=== PATIENT | female | born 1960 | race Hispanic/Latino ===

== ENCOUNTER 2018-11-08 00:10 | Emergency (ER) | payer BC ==
--- OUTSIDE RECORDS SUMMARY | 2018-11-08 00:13 | XMS REPORT ---
:1960 [facility] Address [address] [place] [address] [address] [place] [address] Care Team Providers Name Role Phone Unavailable Unavailable Unavailable Payers Payer Name Policy Type Policy Number Effective Date Expiration Date Problems This patient has no known problems. Allergies, Adverse Reactions, Alerts Allergy Allergy Status Severity Reaction(s) Onset Inactive Treating Comments Name Type Date Date Clinician No Known DA Active U 2013-07 Allergies -25 00:00:0 0 Medications This patient has no known medications.
[2018-11-08] MEDS ORDERED: KETOROLAC 30 MG/ML INJ ONE (01:06)
[2018-11-08 01:16] LABS: Albumin 4.1 g/dL (3.4-5.0); Bilirubin Total 0.4 mg/dL (0.2-1.0); Potassium 4.4 mmol/L (3.5-5.1); Protein, Total 7.9 g/dL (6.4-8.2)
[2018-11-08 01:17] LABS: Absolute Lymphocytes (CBC) 3.1 K/uL (0.7-4.9); Absolute Monocytes 0.6 K/uL (0.1-1.3); Absolute Neutrophil 2.4 K/uL (1.8-8.0); Basophils % 0.9 % (0-1.3); Hematocrit 44.6 % (36.0-45.0); Lymphocytes % 48.7 % (15.3-44.8); MPV 8.8 fL (7.6-11.3); RBC Red Blood Cell Count 5.16 M/uL (3.86-4.86)
[2018-11-08] MEDS ORDERED: TRAMADOL HCL 50 MG TAB ONE (02:08)
--- NOTE | 2018-11-08 02:14 | EDPHYS ---
Physician Documentation [facility] Name: Una Tarango Age: 58 yrs Sex: Female : 1960 Arrival Date: 11/08/2018 Time: 00:12 Bed 6 Private MD: Neela Kelly C ED Physician Nazario Carver HPI: 11/08 00:41 This 58 yrs old Female presents to ER via Wheelchair with complaints of Leg tw4 Pain. 00:41 The patient presents with pain, that is acute. The complaints affect the left calf. tw4 Context: The problem was sustained at home. Modifying factors: The symptoms are alleviated by nothing. the symptoms are aggravated by nothing. The patient has not experienced similar symptoms in the past. Historical: - Allergies: 00:19 No Known Allergies; la1 - Home Meds: 00:19 gemfibrozil 600 mg Oral tab 1 tab daily [Active]; losartan Oral [Active]; Metoprolol la1 Tartrate Oral [Active]; - PMHx: 00:19 Diabetes - NIDDM; Hypertension; la1 - Immunization history:: Adult Immunizations up to date. - Social history:: Smoking status: Patient/guardian denies using tobacco. - Ebola Screening: : No symptoms or risks identified at this time. ROS: 00:41 Constitutional: Negative for fever, chills, and weight loss, Eyes: Negative for injury, tw4 pain, redness, and discharge, Cardiovascular: Negative for chest pain, palpitations, and edema, Respiratory: Negative for shortness of breath, cough, wheezing, and pleuritic chest pain, Abdomen/GI: Negative for abdominal pain, nausea, vomiting, diarrhea, and constipation, Back: Negative for injury and pain. 00:41 MS/extremity: Positive for tenderness, Negative for acute changes, injury or acute deformity, abrasion, decreased range of motion, deformity, ecchymosis, erythema. Exam: 00:41 Constitutional: This is a well developed, well nourished patient who is awake, alert, tw4 and in no acute distress. Head/Face: Normocephalic, atraumatic. Chest/axilla: Normal chest wall appearance and motion. Nontender with no deformity. No lesions are appreciated. Cardiovascular: Regular rate and rhythm with a normal S1 and S2. No gallops, murmurs, or rubs. Normal PMI, no JVD. No pulse deficits. Respiratory: Lungs have equal breath sounds bilaterally, clear to auscultation and percussion. No rales, rhonchi or wheezes noted. No increased work of breathing, no retractions or nasal flaring. Abdomen/GI: Soft, non-tender, with normal bowel sounds. No distension or tympany. No guarding or rebound. No evidence of tenderness throughout. Back: No spinal tenderness. No costovertebral tenderness. Full range of motion. Neuro: Awake and alert, GCS 15, oriented to person, place, time, and situation. Cranial nerves II-XII grossly intact. Motor strength 5/5 in all extremities. Sensory grossly intact. Cerebellar exam normal. Normal gait. 00:41 Musculoskeletal/extremity: Extremities: noted in the lateral aspect of left calf, left calf, medial aspect of left calf and left aly: 00:41 Musculoskeletal/extremity: Extremities: pain, swelling, tenderness. tw4 Vital Signs: 00:19 BP 139 / 90; Pulse 84; Resp 16; Temp 97.2; Pulse Ox 98% on R/A; Weight 75.75 kg; Height la1 5 ft. 2 in. (157.48 cm); Pain 10/10; 01:58 BP 135 / 90; Pulse 89; Resp 17 S; Pulse Ox 97% on R/A; jd3 00:19 Body Mass Index 30.54 (75.75 kg, 157.48 cm) la1 MDM: 00:34 Patient medically screened. tw4 00:41 Differential diagnosis: dislocation, closed fracture. Data reviewed: vital signs, tw4 nurses notes. Counseling: I had a detailed discussion with the patient and/or guardian regarding: the historical points, exam findings, and any diagnostic results supporting the discharge/admit diagnosis. 02:08 Data interpreted: Pulse oximetry: Interpretation: normal. ED course: ultrasound tw4 performed and was negative for DVT. Pt received analgesia and states that she feels better. 11/08 00:39 Order name: CBC with Diff; Complete Time: 02:10 4 11/08 02:10 Interpretation: RBC 5.16; LYM% 48.7; HIEN% 36.4. tw4 11/08 00:39 Order name: CMP; Complete Time: 02:10 tw4 11/08 02:10 Interpretation: Normal except: CL 111; GLUC 112; BUN 21; GFR 74. tw4 11/08 00:39 Order name: Extremity Venous Uni Ltd 4 11/08 00:56 Order name: IV; Complete Time: 00:56 jd3 Administered Medications: 00:56 Drug: TORadol 30 mg Route: IVP; Site: right antecubital; jd3 01:53 Follow up: Response: No adverse reaction jd3 01:57 Drug: traMADol 50 mg Route: PO; jd3 02:29 Follow up: Response: No adverse reaction jd3 Disposition: 11/08/18 02:13 Discharged to Home. Impression: Strain of other muscle(s) and tendon(s) at lower leg level, left leg. - Condition is Stable. - Discharge Instructions: Leg Cramps. - Prescriptions for Tramadol 50 mg Oral Tablet - take 1 tablet by ORAL route every 8 hours as needed; 12 tablet. - Work release form, Medication Reconciliation Form, Thank You Letter, Antibiotic Education, Prescription Opioid Use form. - Follow up: Neela Kelly MD; When: Upon discharge from the Emergency Department; Reason: If symptoms return, Recheck today's complaints, Continuance of care. - Problem is new. - Symptoms have improved. Signatures: Dispatcher [employer] EDMS Cory Jarvis RN RN Travis Reeder RN RN [email or web address] Nazario Carver MD MD tw4 Corrections: (The following items were deleted from the chart) 02:30 02:13 11/08/2018 02:13 Discharged to Home. Impression: Strain of other muscle(s) and jd3 tendon(s) at lower leg level, left leg. Condition is Stable. Forms are Medication Reconciliation Form, Thank You Letter, Antibiotic Education, Prescription Opioid Use. Follow up: Neela Kelly; When: Upon discharge from the Emergency Department; Reason: If symptoms return, Recheck today's complaints, Continuance of care. Problem is new. Symptoms have improved. tw4
--- NOTE | 2018-11-08 02:14 | ER ---
Nurse's Notes [facility] Name: Una Tarango Age: 58 yrs Sex: Female : 1960 Arrival Date: 11/08/2018 Time: 00:12 Bed 6 Private MD: Neela Kelly C Diagnosis: Strain of other muscle(s) and tendon(s) at lower leg level, left leg Presentation: 11/08 00:17 Presenting complaint: Patient states: I have been having a pain around my left la1 hip/thigh that radiates down my leg to my calf area for the last few months, the pain is getting much worse the last couple days. Transition of care: patient was not received from another setting of care. Onset of symptoms was November 08, 2018. Risk Assessment: Do you want to hurt yourself or someone else? Patient reports no desire to harm self or others. Initial Sepsis Screen: Does the patient meet any 2 criteria? No. Patient's initial sepsis screen is negative. Does the patient have a suspected source of infection? No. Patient's initial sepsis screen is negative. Care prior to arrival: None. 00:17 Method Of Arrival: Wheelchair la1 00:17 Acuity: CHRIS 4 la1 Historical: - Allergies: 00:19 No Known Allergies; la1 - Home Meds: 00:19 gemfibrozil 600 mg Oral tab 1 tab daily [Active]; losartan Oral [Active]; Metoprolol la1 Tartrate Oral [Active]; - PMHx: 00:19 Diabetes - NIDDM; Hypertension; la1 - Immunization history:: Adult Immunizations up to date. - Social history:: Smoking status: Patient/guardian denies using tobacco. - Ebola Screening: : No symptoms or risks identified at this time. Screenin:31 Abuse screen: Denies threats or abuse. Nutritional screening: No deficits noted. jd3 Tuberculosis screening: No symptoms or risk factors identified. Fall Risk Ambulatory Aid- None/Bed Rest/Nurse Assist (0 pts). Gait- Normal/Bed Rest/Wheelchair (0 pts) Mental Status- Oriented to own ability (0 pts). Total Conrad Fall Scale indicates No Risk (0-24 pts). Assessment: 00:28 General: Appears in no apparent distress. uncomfortable, Behavior is calm, cooperative, jd3 appropriate for age. Pain: Complains of pain in left hip Pain radiates to left leg Quality of pain is described as shooting. Neuro: Level of Consciousness is awake, alert, obeys commands, Oriented to person, place, time, situation, Appropriate for age. Cardiovascular: Capillary refill < 3 seconds Patient's skin is warm and dry. Respiratory: Airway is patent Respiratory effort is even, unlabored, Respiratory pattern is regular, symmetrical. GI: No signs and/or symptoms were reported involving the gastrointestinal system. : No signs and/or symptoms were reported regarding the genitourinary system. EENT: No signs and/or symptoms were reported regarding the EENT system. Derm: Skin is intact, Skin is dry, Skin is normal, Skin temperature is warm Denies tingling, swelling. Musculoskeletal: Circulation, motion, and sensation intact. Range of motion: intact in all extremities, limited in left hip. 01:20 Reassessment: Patient appears in no apparent distress at this time. Patient and/or jd3 family updated on plan of care and expected duration. Pain level reassessed. Patient is alert, oriented x 3, equal unlabored respirations, skin warm/dry/pink. awaiting ultrasound. 01:58 Reassessment: Patient appears in no apparent distress at this time. Patient and/or jd3 family updated on plan of care and expected duration. Pain level reassessed. Patient is alert, oriented x 3, equal unlabored respirations, skin warm/dry/pink. 02:27 Reassessment: Patient appears in no apparent distress at this time. Patient and/or jd3 family updated on plan of care and expected duration. Pain level reassessed. Patient is alert, oriented x 3, equal unlabored respirations, skin warm/dry/pink. Vital Signs: 00:19 BP 139 / 90; Pulse 84; Resp 16; Temp 97.2; Pulse Ox 98% on R/A; Weight 75.75 kg; Height la1 5 ft. 2 in. (157.48 cm); Pain 10/10; 01:58 BP 135 / 90; Pulse 89; Resp 17 S; Pulse Ox 97% on R/A; jd3 00:19 Body Mass Index 30.54 (75.75 kg, 157.48 cm) la1 ED Course: 00:12 Patient arrived in ED. do 00:13 Neela Kelly MD is Private Physician. do 00:17 Triage completed. la1 00:20 Arm band placed on right wrist. la1 00:24 Travis Fleming RN is Primary Nurse. jd3 00:34 Nazario Carver MD is Attending Physician. tw4 00:35 Patient has correct armband on for positive identification. Bed in low position. Call jd3 light in reach. Side rails up X 1. Adult w/ patient. 00:45 Inserted saline lock: 20 gauge in right antecubital area, using aseptic technique. jd3 Blood collected. 01:41 Extremity Venous Uni Ltd US In Process Unspecified. EDMS 01:58 No provider procedures requiring assistance completed. jd3 02:11 Neela Kelly MD is Referral Physician. tw4 02:28 IV discontinued, intact, bleeding controlled, No redness/swelling at site. Pressure jd3 dressing applied. Administered Medications: 00:56 Drug: TORadol 30 mg Route: IVP; Site: right antecubital; jd3 01:53 Follow up: Response: No adverse reaction jd3 01:57 Drug: traMADol 50 mg Route: PO; jd3 02:29 Follow up: Response: No adverse reaction jd3 Outcome: 02:13 Discharge ordered by . tw4 02:27 Discharged to home ambulatory, with family. jd3 02:27 Condition: stable 02:27 Discharge instructions given to patient, family, Instructed on discharge instructions, follow up and referral plans. medication usage, Demonstrated understanding of instructions, follow-up care, medications, Prescriptions given X 1. 02:30 Patient left the ED. jd3 Signatures: Dispatcher [employer] EDOK Cory Jarvis, JAD RN la1 Kailey Schmitz Jonathon, RN RN jd3 Nazario Carver MD MD tw4
[2018-11-08 03:40] VITALS: TEMP 97.2
[2018-11-08 03:41] VITALS: BP 135/90; O2SAT 97
--- NOTE | 2018-11-08 07:26 | RAD REPORT ---
EXAM DESCRIPTION: USExtremity Venous Uni Ltd11/08/2018 1:44 am CLINICAL HISTORY: left leg pain COMPARISON: None. FINDINGS: Left common femoral, superficial femoral, popliteal and posterior tibial veins are compre ssible and demonstrate augmentation. Doppler demonstrates good flow. IMPRESSION: No evidence of deep venous thrombosis involving the left lower extremity.
== END 2018-11-08 02:30 | disposition home or self-care (01) ==
LOC: ER 00:10
DX: S86.912A Strain of unspecified muscle(s) and tendon(s) at lower leg level, left leg, initial encounter (principal); Y92.009 Unspecified place in unspecified non-institutional (private) residence as the place of occurrence of the external cause; E11.9 Type 2 diabetes mellitus without complications; I10 Essential (primary) hypertension
CPT/HCPCS: 36415; 80053; 85025; 93971; 96374; 99284

== ENCOUNTER 2024-10-20 05:16 | Emergency (ER) | payer BC ==
--- OUTSIDE RECORDS SUMMARY | 2024-10-20 05:19 | XMS REPORT | Continuity of Care Document ---
Author Name Unknown Address [address] [facility] [address] [place] [address] [facility] [place] Address [address] [facility] [address] [place] [address] Care Team Providers Care Anthropological Linguist Name Role Phone PCP, PATIENT DOES NOT HAVE A Primary Care Physic ephraim Unavailable Yadira Robertson Attending Clinician Unavailable Luis Daniel Attending Clinician Unavailable MARGARITA_Malika Attending Clinician UnavailHimanshu Kahn Attending Clinician Unavailable SHEREEN JOHNSON Attending Clinician Unavailab Shereen Curtis DO Attending Clinician [phone] Yadira Robertson Admitting Clinician Unavailable Luis Daniel Admitting Clinician Unavailable MARGARITA_Malika Admitting Clinician Unavailmadelaine richmond KNOW, DOES_NOT Admitting Clinician Unavailable SHEREEN JOHNSON Admitting Clinician Unavailab wade Payers Payer Name Policy Type Policy Number Effective Date Expirati on Date Source [place] [id number] 2022 00:[place] [id number] 2022 00:00:00 [place] [id number] 2022 00:00:00 Problems Condition Name Condition Details Condition Category Status Onset Date Resolution Date Last Treatment Date Treating Clinician Comments Source Chronic cystitis Chronic Cystitis Problem Active 2023-0 4-04 00:00: 00 [facility] Fracture of patella Fracture of Patella Problem Active 2021-06 0-13 00:00: 00 [facility] Pain of right knee joint Pain of Right Knee Joint Problem Active 2021-06 0-11 00:00: 00 [facility] Fracture of patella Fracture of Patella Problem Active 2021-06 0-11 00:00: 00 [facility] Disease of head (disorder) Disease of head (disorder) Active Problem 01/16/2022 [facility] Problem Active 2022-01-16 23:25:17 Joe Mercado Headache (finding) Headache (finding) Active Problem 01/16/2022 [facility] Problem Active 2022-01-16 23:25:17 Joe Mercado Hyperlipid emia (disorder) Hyperlipid emia (disorder) Active Problem 01/16/2022 [facility] Problem Active 2022-01-16 23:25:17 Joe Mercado Hypertensi ve disorder, systemic arterial (disorder) Hypertensi ve disorder, systemic arterial (disorder) Active Problem 01/16/2022 [facility] Problem Active 2022-01-16 23:25:17 Joe Mercado No known active problems No known active problems Disease [facility] Allergies, Adverse Reactions, Alerts Allergy Name Allergy Type Status Severity Reaction(s) Onset Date Inactive Date Treating Clinician Comments Source No Known Drug Allergie s DA Active U 2021-06 0-14 00:00: [address] [facility] No Known Drug Allergie s DA Active U 2021-06 0 00:00: 00 [facility] No Known Allergie s DA Active U 2 00:00: 00 [facility] No Known Allergie s DA Active U 08-23 00:00: 00 [facility] NO KNOWN ALLERGIE S Drug Class Active [facility] Social History Social Habit Start Date Stop Date Quantity Comments Source Exposure to SARS-CoV-2 (event) 2022-03-27 00:00:00 2022-04-06 17:54:00 Not sure [facility] Social History 2021-08-13 21:16:08 2021-08-13 21:16:08 Reno Mercado Sex Assigned At 1960 00:00:00 1960 00:00:00 [facility] Smoking Status Start Date Stop Date Source Never Smoker Sorin keith Tobacco smoking consumption unknown [facility] Medications Ordered Medication Name Filled Medication Name Start Date Stop Date Current Medication? Ordering Clinician Indication Dosage Frequency Signature (SIG) Comments Components Source FENTanyl PF (SUBLIMAZE (PF)) injection 50 mcg 2021-06 23:45: 00 04-06 23:10 :00 No 50ug 50 mcg, Intramuscu lar, ONCE, 1 dose, On 04/06/22 at 1845, Routine [facility] acetaminoph en-codeine (TYLENOL-CO DEINE #3) 300-30 mg tablet 2021-06 00:00: 00 Yes [id number] 1{tbl} Take 1 tablet by mouth every 4 (four) hours as needed for Pain (scale 1-3). Indication s: acute pain [facility] metoprolol succinate 100 mg oral capsule, extended release 08-13 21:30: 00 Yes 100 mg = 1 cap, PO, Daily, 0 Refill(s) Joe Mercado gemfibrozil 600 mg oral tablet 08-13 21:27: 00 Yes 600 mg = 1 tab, PO, BID, 0 Refill(s) Joe Mercado aspirin 81 mg tablet,yulissa yed release Take 1 tablet twice a day by oral route for 27 days. aspirin 81 mg tablet,yulissa yed release Take 1 tablet twice a day by oral route for 27 days. No 1 BID aspirin 81 mg tablet,del ayed release Take 1 tablet twice a day by oral route for 27 days. [facility] cephalexin 500 mg tablet cephalexin 500 mg tablet No cephalexin 500 mg tablet [facility] losartan potassium (bulk) 100 % powder losartan potassium (bulk) 100 % powder No losartan potassium (bulk) 100 % powder [facility] metoprolol succinate ER 25 mg capsule sprinkle, ext. release 24 hr metoprolol succinate ER 25 mg capsule sprinkle, ext. release 24 hr No metoprolol succinate ER 25 mg capsule sprinkle, ext. release 24 hr [facility] omeprazole ER 40 mg capsule,ext ended release omeprazole ER 40 mg capsule,ext ended release No omeprazole ER 40 mg capsule,ex tended release [facility] promethazin e 25 mg tablet Take 1 tablet(s) EVERY 8 HOURS by oral route as needed for nausea/vomi ting promethazin e 25 mg tablet Take 1 tablet(s) EVERY 8 HOURS by oral route as needed for nausea/vomi ting No promethazi ne 25 mg tablet Take 1 tablet(s) EVERY 8 HOURS by oral route as needed for nausea/vom iting [facility] rosuvastati n 10 mg tablet rosuvastati n 10 mg tablet No rosuvastat in 10 mg tablet [facility] tizanidine 4 mg tablet Take 1 tablet(s), by mouth, EVERY 8 hours as needed for muscle spasms tizanidine 4 mg tablet Take 1 tablet(s), by mouth, EVERY 8 hours as needed for muscle spasms No tizanidine 4 mg tablet Take 1 tablet(s), by mouth, EVERY 8 hours as needed for muscle spasms [facility] Ultracet 37.5 mg-325 mg tablet Take 1 tablet by mouth every 4-6 hours as needed for pain Ultracet 37.5 mg-325 mg tablet Take 1 tablet by mouth every 4-6 hours as needed for pain No Ultracet 37.5 mg-325 mg tablet Take 1 tablet by mouth every 4-6 hours as needed for pain [facility] aspirin 81 mg tablet,yulissa yed release Take 1 tablet twice a day by oral route for 27 days. aspirin 81 mg tablet,yulissa yed release Take 1 tablet twice a day by oral route for 27 days. No 1 BID aspirin 81 mg tablet,del ayed release Take 1 tablet twice a day by oral route for 27 days. [facility] cephalexin 500 mg tablet cephalexin 500 mg tablet No cephalexin 500 mg tablet [facility] losartan potassium (bulk) 100 % powder losartan potassium (bulk) 100 % powder No losartan potassium (bulk) 100 % powder [facility] metoprolol succinate ER 25 mg capsule sprinkle, ext. release 24 hr metoprolol succinate ER 25 mg capsule sprinkle, ext. release 24 hr No metoprolol succinate ER 25 mg capsule sprinkle, ext. release 24 hr [facility] omeprazole ER 40 mg capsule,ext ended release omeprazole ER 40 mg capsule,ext ended release No omeprazole ER 40 mg capsule,ex tended release [facility] promethazin e 25 mg tablet Take 1 tablet(s) EVERY 8 HOURS by oral route as needed for nausea/vomi ting promethazin e 25 mg tablet Take 1 tablet(s) EVERY 8 HOURS by oral route as needed for nausea/vomi ting No promethazi ne 25 mg tablet Take 1 tablet(s) EVERY 8 HOURS by oral route as needed for nausea/vom iting [facility] rosuvastati n 10 mg tablet rosuvastati n 10 mg tablet No rosuvastat in 10 mg tablet [facility] tizanidine 4 mg tablet Take 1 tablet(s), by mouth, EVERY 8 hours as needed for muscle spasms tizanidine 4 mg tablet Take 1 tablet(s), by mouth, EVERY 8 hours as needed for muscle spasms No tizanidine 4 mg tablet Take 1 tablet(s), by mouth, EVERY 8 hours as needed for muscle spasms [facility] Ultracet 37.5 mg-325 mg tablet Take 1 tablet by mouth every 4-6 hours as needed for pain Ultracet 37.5 mg-325 mg tablet Take 1 tablet by mouth every 4-6 hours as needed for pain No Ultracet 37.5 mg-325 mg tablet Take 1 tablet by mouth every 4-6 hours as needed for pain [facility] aspirin 81 mg tablet,yulissa yed release Take 1 tablet twice a day by oral route for 27 days. aspirin 81 mg tablet,yulissa yed release Take 1 tablet twice a day by oral route for 27 days. No 1 BID aspirin 81 mg tablet,del ayed release Take 1 tablet twice a day by oral route for 27 days. [facility] losartan potassium (bulk) 100 % powder losartan potassium (bulk) 100 % powder No losartan potassium (bulk) 100 % powder [facility] metoprolol succinate ER 25 mg capsule sprinkle, ext. release 24 hr metoprolol succinate ER 25 mg capsule sprinkle, ext. release 24 hr No metoprolol succinate ER 25 mg capsule sprinkle, ext. release 24 hr [facility] omeprazole ER 40 mg capsule,ext ended release omeprazole ER 40 mg capsule,ext ended release No omeprazole ER 40 mg capsule,ex tended release [facility] rosuvastati n 10 mg tablet rosuvastati n 10 mg tablet No rosuvastat in 10 mg tablet [facility] Ultracet 37.5 mg-325 mg tablet Take 1 tablet by mouth every 4-6 hours as needed for pain Ultracet 37.5 mg-325 mg tablet Take 1 tablet by mouth every 4-6 hours as needed for pain No Ultracet 37.5 mg-325 mg tablet Take 1 tablet by mouth every 4-6 hours as needed for pain [facility] aspirin 81 mg tablet,yulissa yed release Take 1 tablet twice a day by oral route for 27 days. aspirin 81 mg tablet,yulissa yed release Take 1 tablet twice a day by oral route for 27 days. No 1 BID aspirin 81 mg tablet,del ayed release Take 1 tablet twice a day by oral route for 27 days. [facility] losartan potassium (bulk) 100 % powder losartan potassium (bulk) 100 % powder No losartan potassium (bulk) 100 % powder [facility] metoprolol succinate ER 25 mg capsule sprinkle, ext. release 24 hr metoprolol succinate ER 25 mg capsule sprinkle, ext. release 24 hr No metoprolol succinate ER 25 mg capsule sprinkle, ext. release 24 hr [facility] omeprazole ER 40 mg capsule,ext ended release omeprazole ER 40 mg capsule,ext ended release No omeprazole ER 40 mg capsule,ex tended release [facility] rosuvastati n 10 mg tablet rosuvastati n 10 mg tablet No rosuvastat in 10 mg tablet [facility] Ultracet 37.5 mg-325 mg tablet Take 1 tablet by mouth every 4-6 hours as needed for pain Ultracet 37.5 mg-325 mg tablet Take 1 tablet by mouth every 4-6 hours as needed for pain No Ultracet 37.5 mg-325 mg tablet Take 1 tablet by mouth every 4-6 hours as needed for pain [facility] nitrofurant oin macrocrysta l 50 mg capsule Take 1 capsule every day by oral route for 30 days. nitrofurant oin macrocrysta l 50 mg capsule Take 1 capsule every day by oral route for 30 days. No 1capsul e(s) Q1D nitrofuran toin macrocryst al 50 mg capsule Take 1 capsule every day by oral route for 30 days. [facility] dicyclomine 10 mg capsule dicyclomine 10 mg capsule No dicyclomin e 10 mg capsule [facility] Gemtesa 75 mg tablet Take 1 tablet every day by oral route for 30 days. Gemtesa 75 mg tablet Take 1 tablet every day by oral route for 30 days. No 1 Q1D Gemtesa 75 mg tablet Take 1 tablet every day by oral route for 30 days. [facility] losartan 100 mg tablet losartan 100 mg tablet No losartan 100 mg tablet [facility] omeprazole 40 mg capsule,del ayed release omeprazole 40 mg capsule,del ayed release No omeprazole 40 mg capsule,de layed release [facility] estradiol 0.01% (0.1 mg/gram) vaginal cream Insert 1 g twice a week by vaginal route as directed for 90 days. estradiol 0.01% (0.1 mg/gram) vaginal cream Insert 1 g twice a week by vaginal route as directed for 90 days. No 1g Q3.5D estradiol 0.01% (0.1 mg/gram) vaginal cream Insert 1 g twice a week by vaginal route as directed for 90 days. [facility] metoprolol tartrate 50 mg tablet metoprolol tartrate 50 mg tablet No metoprolol tartrate 50 mg tablet [facility] Immunizations Ordered Immunization Name Filled Immunization Name Date Status Comments Source COVID-19 (SARS-COV-2) vaccine, unspecified COVID-19 (SARS-COV-2) vaccine, unspecified Unknown Completed [facility] influenza, unspecified formulation influenza, unspecified formulation Unknown Completed [facility] Vital Signs Vital Name Observation Time Observation Value Comments S ource BMI (Body Mass Index) 2024-03-22 00:00:00 31.1 kg/m2 [facility] Body Weight 2024-03-22 00:00:00 170 [lb_av] [facility] Height 2024-03-22 00:00:00 62 [in_i] [place] [facility] Height 2023-12-15 00:00:00 62 [in_i] [place] [facility] BP Systolic 2023-12-15 00:00:00 130 mm[Hg] [facility] BMI (Body Mass Index) 2023-12-15 00:00:00 31.1 kg/m2 [facility] Weight 2023-12-15 00:00:00 170 [lb_av[facility] Diastolic 2023-12-15 00:00:00 79 mm[Hg] [facility] Height 2023-03-26 00:00:00 62 [in_i] [place] [facility] Body Weight 2023-03-26 00:00:00 168 [lb_av] [facility] BMI (Body Mass Index) 2023-03-26 00:00:00 30.7 kg/m2 [facility] Height 2022-10-06 00:00:00 62 [in_i] [place] [facility] BMI (Body Mass Index) 2022-10-06 00:00:00 30.7 kg/m2 [facility] Body Weight 2022-10-06 00:00:00 168 [lb_av] [facility] Height 2022-07-07 00:00:00 62 [in_i] [facility] Body Weight 2022-07-07 00:00:00 170 [lb_av] [facility] Height 2022-04-08 00:00:00 62 [in_i] [facility] BMI (Body Mass Index) 2022-04-08 00:00:00 31.1 kg/m2 [facility] Body Weight 2022-04-08 00:00:00 170 [lb_av] [facility] Systolic blood pressure 2022-04-06 22:55:00 188 mm[Hg] [facility] Diastolic blood pressure 2022-04-06 22:55:00 69 mm[Hg] [facility] Heart rate 2022-04-06 22:55:00 86 /[facility] 2022-04-06 22:55:00 36.61 Mons[facility] Respiratory rate 2022-04-06 22:55:00 18 /min [facility] Body height 2022-04-06 22:55:00 157.5 cm [facility] Body weight 2022-04-06 22:55:00 77.111 kg [facility] BMI 2022-04-06 22:55:00 31.09 kg/m2 [facility] Oxygen saturation in Arterial blood by Pulse oximetry 2022-04-06 22:55:00 99 /min [facility] Diastolic (mm Hg) 2021-10-15 19:44:00 [facility] Heart Rate 2021-10-15 19:44:00 [facility] Respitory Rate 2021-10-15 19:44:00 [facility] Height 2021-10-15 19:44:00 157.48 cm [facility] Weight 2021-10-15 19:44:00 [facility] BMI Calculated 2021-10-15 19:44:00 [facility] Systolic (mm Hg) 2021-10-15 19:44:00 [facility] Systolic (mm Hg) 2021-08-13 21:05:00 [facility] Diastolic (mm Hg) 2021-08-13 21:05:00 [facility] Heart Rate 2021-08-13 21:05:00 [facility] Respitory Rate 2021-08-13 21:05:00 [facility] Height 2021-08-13 21:05:00 157.48 cm [facility] Weight 2021-08-13 21:05:00 [facility] BMI Calculated 2021-08-13 21:05:00 Anthony Mercado Procedures Procedure Date / Time Performed Performing Clinician Source US, kidney 2023-12-15 00:00:00 [facility] XR, kidney + ureter + bladder 2023-12-15 00:00:00 [facility] Knee Surgery 2022-04-11 00:00:00 [facility], knee, 1 or 2 view 2022-04-08 00:00:00 [facility] XR KNEE <3 VW RIGHT 2022-04-06 23:33:35 Clau Johnson ra [facility] NOTICE OF PRIVACY PRACTICES 2022-04-06 22:48:04 Doctor Unassigned, [place] [facility] Hysterectomy [facility] Cholecystectomy [facility] 4[employer]- Hysterectomy [facility] Diagnostic Colonoscopy [place] [facility] Gallbladder operation [facility] Hyste[facility] Encounters Start Date/Time End Date/Time Encounter Type Admission Type Attending Clinicians Care Facility Care Department Encounter ID Source 2024-09-28 08:00:00 2024-09-28 08:00:00 Outpatient Yadira Calles [id number] [address] [place] [address] 2024-03-22 00:00:00 2024-03-22 00:00:00 Rico Ferguson MD: [id number], [place] [address] , Ph. [facility] [place] - [id number] [facility] 2023-12-15 00:00:00 2023-12-15 00:00:00 Rico Ferguson MD: [address] [address], [place] [address] , [facility] [place] - [facility] [id number] [facility] 2023-08-26 12:00:00 2023-08-26 12:00:00 Outpatient Yadira Calles HCAPM TONI [id number] [facility] 2023-06-19 00:00:00 2023-06-19 00:00:00 Outpatient Goldfarb_R HMU HMU [id number] [facility] 2023-05-15 00:00:00 2023-05-15 00:00:00 Outpatient Goldfarb_R HMU HMU [id number] [facility] 2023-04-10 00:00:00 2023-04-10 00:00:00 Outpatient Goldfarb_R HMU HMU [id number] [facility] 2023-03-26 00:00:00 2023-03-26 00:00:00 Outpatient Goldfarb_R HMU HMU [id number] [facility] 2023-03-26 00:00:00 2023-03-26 00:00:00 Outpatient Goldfarb_R HMU HMU [id number] [facility] 2023-03-26 00:00:00 2023-03-26 00:00:00 Vimal Cortez MD: [address] [address], [place] [address] , [address] [address] [id number] [facility] 2023-03-25 00:00:00 2023-03-25 00:00:00 Outpatient Goldfarb_R HMU HMU [id number] [facility] 2023-01-02 00:00:00 2023-01-02 00:00:00 Outpatient Goldfarb_R HMU HMU [id number] [facility] 2023-01-02 00:00:00 2023-01-02 00:00:00 Outpatient Goldfarb_R HMU HMU [id number] [facility] 2022-11-28 00:00:00 2022-11-28 00:00:00 Outpatient Goldfarb_R HMU HMU [id number] [facility] 2022-10-31 00:00:00 2022-10-31 00:00:00 Vimal Cortez MD: [address] [facility], [place] [address] , Ph. [facility] Surgical Center [id number] [facility] 2022-10-24 00:00:00 2022-10-24 00:00:00 Outpatient Goldfarb_R HMU U [id number] [facility] 2022-10-24 00:00:00 2022-10-24 00:00:00 Outpatient Goldfarb_R HMU [id number] [facility] 2022-10-13 00:00:00 2022-10-13 00:00:00 Outpatient Goldfarb_R HMU HMU [id number] [facility] 2022-10-06 00:00:00 2022-10-06 00:00:00 Outpatient Goldfarb_R HMU [facility] [id number] [facility] 2022-10-06 00:00:00 2022-10-06 00:00:00 Vimal Cortez MD: [address] [address], [place] [address] , [address] [address] [id number] [facility] 2022-09-22 00:00:00 2022-09-22 00:00:00 Outpatient Goldfarb_R HMU U [id number] [facility] 2022-09-22 00:00:00 2022-09-22 00:00:00 Outpatient Goldfarb_R HMU [id number] [facility] 2022-08-19 12:00:00 2022-08-19 12:00:00 Outpatient Yadira Calles [facility] T[facility] [id number] [address] [place] [address] 2022-08-07 00:00:00 2022-08-07 00:00:00 Outpatient Goldfarb_R HMU [id number] [facility] 2022-08-06 00:00:00 2022-08-06 00:00:00 Outpatient Goldfarb_R HMU [facility] [id number] [facility] 2022-08-04 00:00:00 2022-08-04 00:00:00 Outpatient Goldfarb_R HMU [id number] [facility] 2022-07-07 00:00:00 2022-07-07 00:00:00 Outpatient FOG_Burke_R toni_ AOSM AOSM [id number] [facility] 2022-07-07 00:00:00 2022-07-07 00:00:00 Himanshu Petty MD: [address] [place] [address] , Ph. [phone] [facility] [place] [facility] F[facility]_Ofc Maybell [id number] [facility] 2022-07-01 00:00:00 2022-07-01 00:00:00 Outpatient FOG_Burke_R Kate AOSM AOSM [id number] [facility] 2022-07-01 00:00:00 2022-07-01 00:00:00 Outpatient FOG_Benjie Love AOSM AOSM [id number] [facility] 2022-05-21 00:00:00 2022-05-21 00:00:00 Outpatient FOG_Burke_R Kate AOSM AO [id number] [facility] 2022-05-21 00:00:00 2022-05-21 00:00:00 GÓMEZ Romo: [address] [place] [address] , Ph. [phone] [facility] [place] [facility] [place] [id number] [facility] 2022-05-20 00:00:00 2022-05-20 00:00:00 Outpatient FOG_Burke_R obert_MD AOSM AO [id number] [facility] 2022-04-28 00:00:00 2022-04-28 00:00:00 Outpatient FOG_Benjie Love AOSM AOSM [id number] [facility] 2022-04-25 00:00:00 2022-04-25 00:00:00 Outpatient FOG_Benjie Love AOSM AO [id number] [facility] 2022-04-25 00:00:00 2022-04-25 00:00:00 Himanshu Petty MD: [address] [id number] , Ph. [phone] [facility] [place] [facility] [place] [id number] [facility] 2022-04-24 00:00:00 2022-04-24 00:00:00 Outpatient FOG_Benjie Love AOSM AO [id number] [facility] 2022-04-15 00:00:00 2022-04-15 00:00:00 Outpatient FOG_Benjie Love AOSM AO [id number] [facility] 2022-04-11 05:01:00 2022-04-11 05:01:00 [facility] [id number] [facility] 2022-04-08 00:00:00 2022-04-08 00:00:00 Outpatient FOG_Benjie Love AOSM AO [id number] [facility] 2022-04-08 00:00:00 2022-04-08 00:00:00 Himanshu Petty MD: [address] [place] [address] , Ph. [phone] [facility] [place] [facility] [place] [id number] [facility] 2022-04-07 00:00:00 2022-04-07 00:00:00 Outpatient FOG_Jovanny_Spencer muñoz_ AO AO [id number] [facility] 2022-04-06 17:56:00 2022-04-06 19:13:00 Emergency X SHEREEN JOHNSON [facility] ERT [id number] [facility] 2022-04-06 17:56:00 2022-04-06 19:13:00 Emergency Ray Shereen Colin [facility] [id number] [facility] 2022-01-14 19:45:00 2022-01-14 19:45:00 Ambulatory Pre-Reg nullFlavo r [facility] [place] [id number] Sherriky chang Rogelio 2021-10-15 19:45:00 2021-10-16 04:59:59 Outpatient nullFlavo r [facility] [place] [id number] Joe Mercado 2021-08-13 20:30:00 2021-08-14 05:59:59 Outpatient nullFlavo r [facility] [place] [id number] Joe Mercado 2021-07-17 20:30:00 2021-07-17 20:30:00 Ambulatory Pre-Reg nullFlavo r [facility] [place] [id number] Joe Mercado 2021-07-08 12:00:00 2021-07-08 12:00:00 Outpatient Yadira Calles [facility] [id number] [facility] 2020-07-07 12:00:00 2020-07-07 12:00:00 Outpatient Yadira Calles [facility] T[facility] [id number] [facility] Results Test Description Test Time Test Comments Results Result Co [facility] + [id number] 00:00:00[facility] Notes Date/Time Note Provider Source 2022-04-11 09:05:00 [facility] Brief Op Note REPORT#:[id number] REPORT STATUS: Signed DATE:04/11/22 TIME: 904 PATIENT: JERE TARANGO UNIT #: [id number] ROOM/BED: : 60 AGE: 61 SEX: F ATTEND: Himanshu Petty MD ADM AUTHOR: Himanshu Petty MD * ALL edits or amendments must be made on the electronic/computer document * Op/Inv Proc Note - Brief Pre-procedure diagnosis: right knee patella fracture Post-procedure diagnosis: same as pre procedure dx Procedures performed: partial patellectomy reinsertion of patella tendon Primary Surgeon: Jovanny Graduate Civil Engineer(s): Fatimah BAUM/MAICO Findings: as above Complications: none Estimated blood loss in ml's: none Specimens removed/altered: none at 0907 RPT #:[id number] END OF REPORT [facility] 2022-04-11 09:04:00 [id number] [place] [id number] PATIENT NAME: JERE TARANGO ADMIT DATE: 04/11/22 ACCOUNT NO: [id number] ROOM NO: AGE: 61 REPORT TYPE: OPERATIVE REPORT SEX: F ADMITTING PHYSICIAN: ATTENDING PHYSICIAN:Himanshu Petty MD OPERATION DATE: 04/11/2022 PREOPERATIVE DIAGNOSIS: Right knee inferior pole patellar fracture. POSTOPERATIVE DIAGNOSIS: Right knee inferior pole patellar fracture. OPERATIVE PROCEDURES PERFORMED: Right knee partial patellectomy with reinsertion of patellar tendon, 02156. ANESTHESIA: General. TOURNIQUET TIME: 21 minutes. ESTIMATED BLOOD LOSS: None. SURGEON: Himanshu Petty MD PRINCIPAL ARCHAEOLOGIST: SARIKA Sheridan LSA OPERATIVE FINDINGS: As above. SURGICAL SPECIMENS SENT: None. CLINICAL INDICATIONS: Ms. Tarango is a very pleasant 61-year-old female from [place], [place], who sustained a traumatic injury to her right knee after recent fall. Clinical as well as radiographic evaluation revealed an avulsion of the inferior pole of the patella with significant displacement. She is admitted for partial patellectomy with primary repair infrapatellar tendon. OPERATIVE NARRATIVE: RIGHT KNEE PARTIAL PATELLECTOMY WITH REINSERTION OF PATELLAR TENDON, 20322. DESCRIPTION OF PROCEDURE: Ms. Tarango was brought to the operative suite at which time she was placed in supine position on the OR table. A preoperative adductor block was performed in the holding area. After satisfactory induction of general anesthesia, a tourniquet was applied to the patient's right lower extremity per Mr. Sheridan and the right leg was circumferentially prepped and draped in the usual sterile fashion per Mr. Sheridan. The leg was then elevated, exsanguinated, tourniquet insufflated to 300 mmHg. The knee was placed into 20 degrees of flexion. Anterior midline incision was performed. The remnant of the inferior pole of the patella was sharply resected from the proximal aspect of the patellar tendon. Three parallel drill holes were then PATIENT NAME: JERE TARANGO passed from the inferior aspect of the patella to the superior aspect. A [employer]maxx Incon suture passer was used to pass suture through the drill holes. A #5 Ethibond suture was placed in a modified Hampton fashion along the medial and lateral aspects of the tendon. A second suture was placed in the central aspect of the tendon. The knee was then placed into full extension. The #5 Ethibond suture was passed from an inferior to superior position utilizing the suture passer. With the knee in full extension, the sutures were tied off over the superior pole of the patella. Anatomic reapproximation was performed. A #5 Ethibond suture was used to repair a small medial and lateral retinacular tear. Copious antibiotic lavage was then performed. Skin closure was done with interrupted 0 Vicryl followed by 2-0 Vicryl followed by a Prineo dressing. Sterile dressing was then applied. The patient was then placed in a postoperative rehab brace locked into full extension. Prior to dressing application, intraoperative injection of anesthetic was performed. Ms. Tarango was then extubated and taken to recovery room awake and alert without any anesthetic or operative complications. At the end of the case, sponge and needle counts were correct x2. During the procedure, Mr. Sheridan was invaluable in positioning and preparation of the extremity in combination with providing surgical exposure throughout the procedure. In addition, he was responsible for closure of the postoperative incisions as well as postoperative anesthetic injection as well as application of the postoperative dressing and brace. Dictated By: Himanshu Petty MD Date Dictated: 04/11/2022 09:04:59 Date Transcribed: 04/11/2022 09:53:44 LAUREN/SAMIRA Receipt ID: [id number] Authenticated by Himanshu Petty MD On 04/11/2022 10:20:43 AM at 1020 PATIENT NAME: JERE TARANGO [facility] 2022-04-09 17:17:00 [id number] [place] [address] PATIENT NAME: JERE TARANGO ADMIT DATE: ACCOUNT NO: [id number] ROOM NO: AGE: 61 REPORT TYPE: HISTORY AND PHYSICAL SEX: F ADMITTING PHYSICIAN: ATTENDING PHYSICIAN:Himanshu Petty MD ADMISSION DATE: 04/11/2022 10:58:00 ADMITTING DIAGNOSIS: Right patella fracture. HISTORY OF PRESENT ILLNESS: Ms. Tarango is a very pleasant 61-year-old female who sustained a traumatic injury to her right knee after a recent fall. The clinical as well as radiographic evaluation revealed a displaced fracture of the inferior pole of the patella. She is admitted for partial patellectomy with reinsertion of the patellar tendon. PAST MEDICAL HISTORY: Hypertension. SURGERIES: No surgeries are noted. FAMILY HISTORY: Hypertension. SOCIAL HISTORY: She does not smoke nor does she drink. ALLERGIES: NO ALLERGIES ARE LISTED. MEDICATIONS: Consist of estradiol as well as spironolactone. REVIEW OF SYSTEMS: Negative. PHYSICAL EVALUATION: VITAL SIGNS: She is 5 feet 2 inches tall, 62.2 kg. HEENT: Within normal limits. CARDIAC: Regular rate and rhythm, no murmur. CHEST: Clear. ABDOMEN: Benign. BACK: No CVA tenderness. PERTINENT ORTHOPEDIC EVALUATION: Examination of the right knee reveals a palpable defect in the patellar tendon. She has a 30-degree extensor lag. Remaining examination is within normal limits. Her distal neurovascular status is intact. LABORATORY DATA: Radiographic evaluation revealed a displaced fracture of the inferior pole of the patella. ASSESSMENT: Displaced inferior pole patellar fracture. SURGICAL PLAN: Partial patellectomy, reinsertion of patellar tendon. I have PATIENT NAME: JERE TARANGO gone over at length with the patient the associated risks involved with this procedure. She understands these risks include but not limited to bleeding, infection, neurovascular damage, painful scar, failure of repair, loss of motion, deep vein thrombi leading to pulmonary emboli along with complications secondary to anesthesia. She further understands that there are no guarantees or warranties that she will be pain free as a result of the procedure. Ms. Tarango accepts these risks and gives her informed consent to proceed. Dictated By: Himanshu Petty MD Date Dictated: 04/09/2022 17:17:51 Date Transcribed: 04/09/2022 18:36:39 LAUREN/ISAÍAS/TONY Receipt ID: [id number] Authenticated by Himanshu Petty MD On 04/10/2022 06:42:45 AM at 0642 PATIENT NAME: JERE TARANGO [facility]
--- NOTE | 2024-10-20 05:51 | ER ---
Nurse's Notes [facility] Name: Una Tarango Age: 64 yrs Sex: Female : 1960 Arrival Date: 10/20/2024 Time: 05:16 Bed 5 Private MD: Art Kelly Diagnosis: Presentation: 10/20 05:19 Note pt called from lobby. no response. provider notified. lg3 05:34 Note pt called from lobby. no response. provider notified. lg3 ED Course: 05:17 Patient arrived in ED. jj6 05:18 Art Kelly MD is Private Physician. jj6 05:19 Julio Garcia MD is Attending Physician. rn 05:40 Patient's name was called from ER lobby. No response. Unable to locate patient. Will vc1 disposition as left without being seen by a provider. Administered Medications: No medications were administered Outcome: 05:49 Eloped from waiting room, before seeing physician Time discovered patient gone: September at 05:42 05:50 Patient left the ED. vc1 Signatures: Julio Garcia MD MD rn Able, Lacie, RN RN lg3 Rhonda Benavidez jj6 Kisha Kulkarni RN RN vc1
--- NOTE | 2024-10-20 05:51 | EDPHYS ---
Physician Documentation [facility] Name: Una Tarango Age: 64 yrs Sex: Female : 1960 Arrival Date: 10/20/2024 Time: 05:16 Bed 5 Private MD: Art Kelly ED Physician Administered Medications: No medications were administered Disposition Summary: 10/20/24 05:50 Eloped Notes: Disposition: before being seen by provider vc1 Reason: unknown vc1 Signatures: Julio Garcia MD MD rn Calcote, Vanessa, RN RN vc1 Corrections: (The following items were deleted from the chart) 10/20 05:38 05:19 Medical Screening Exam initiated rn rn
== END 2024-10-20 05:50 | disposition left against medical advice (07) ==
LOC: ER 05:16
DX: Z02.9 Encounter for administrative examinations, unspecified (principal)